=== PATIENT | female | born 1945 | race African-American/Black ===

== ENCOUNTER 2023-02-27 16:50 | Emergency (ER) | payer OTHER ==
[~2023-02-27] VITALS: Ht 162.6 cm; Wt 82.0 kg
[2023-02-27 16:56] VITALS: O2SAT 98
[2023-02-27 19:24] LABS: BASOPHILS % 0.5 % (0.0-2.0); EOSINOPHILS % 1.4 % (0.0-5.0); HEMATOCRIT. 35.5 % (36.0-48.0); HEMOGLOBIN. 11.3 g/dL (12.0-16.0); LYMPHOCYTES % 31.1 % (20.0-50.0); MEAN CORPUSCULAR HEMOGLOBIN 29.1 pg (28.0-32.0); MEAN CORPUSCULAR HGB CONC 31.9 g/dL (31.0-37.0); MEAN CORPUSCULAR VOLUME 91.2 fL (81.0-99.0); MEAN PLATELET VOLUME 7.3 fl (7.4-10.4); MONOCYTES % 10.5 % (2.0-8.0); NEUTROPHILS % 56.5 % (40.0-76.0); PLATELET 267 x1000/uL (130-400); RED BLOOD CELL COUNT 3.89 mill/uL (4.2-5.4); WHITE BLOOD COUNT 8.9 x1000/uL (4.5-11.0)
[2023-02-27 19:31] LABS: CHLORIDE 111 mEq/L (98-107); INDEX HEMOLYSI 2 (1-3); INDEX ICTERIC 1 (1-4); INDEX LIPEMIC 1 (1-3); POTASSIUM 4.8 mEq/L (3.5-5.1); SODIUM 138 mEq/L (136-145)
[2023-02-27 19:39] LABS: ALANINE AMINOTRANSFERASE 32 IU/L (13-61); ALBUMIN 3.8 g/dL (3.4-5.0); ASPARTATE AMINOTRANSFERASE 36 IU/L (15-37); BILIRUBIN TOTAL 0.2 mg/dL (0.1-1.0); CALCIUM 8.6 mg/dL (8.5-10.1); CARBON DIOXIDE 21 mEq/L (21-32); CREATININE 2.7 mg/dL (0.6-1.3); GLUCOSE 121 mg/dL (70-105); NT PRO B-TYPE NATRIURETIC PEP 252 pg/mL (5-125); PROTEIN TOTAL 7.6 g/dL (6.0-8.3); TROPONIN I HIGH SENSITIVITY 41 ng/L (<54); UREA NITROGEN BLOOD 39 mg/dL (7-21)
[2023-02-28 00:30] LABS: TROPONIN I HIGH SENSITIVITY 40 ng/L (<54)
[2023-02-28 02:13] VITALS: BP 141/90; PULSE 87; RESP 16; TEMP 97.6
== END 2023-02-28 02:23 | disposition short-term general hospital (02) ==
LOC: ER 16:50
DX: R07.89 Other chest pain (principal); I10 Essential (primary) hypertension; E78.00 Pure hypercholesterolemia, unspecified; E11.9 Type 2 diabetes mellitus without complications; Z91.018 Allergy to other foods; Z91.010 Allergy to peanuts; Z86.73 Personal history of transient ischemic attack (TIA), and cerebral infarction without residual deficits; Z68.31 Body mass index [BMI] 31.0-31.9, adult
CPT/HCPCS: 36415; 71045; 80053; 83880; 84484; 85025; 93005; 99285

== ENCOUNTER 2025-01-26 19:41 | Emergency (ER) | payer OTHER ==
[~2025-01-26] VITALS: Ht 167.6 cm; Wt 50.0 kg
[~2025-01-26 19:41] MED LIST: ASPI-986 MT; ATOR20TA MT; CHOL400D7 PO; DILT30TA37 MT; HYDR25TA78 MT; IBUP-2778 PO; TOPUD PO; VITA-384 MT
[2025-01-26 19:47] VITALS: TEMP 36.5; O2SAT 96
[2025-01-26] MEDS: HYDROCODONE/ACETAMINOPHEN 5/325MG TABLET PO ONE (21:35)
[2025-01-26] MEDS: LIDOCAINE 5% PATCH TOP SCH (21:36)
[2025-01-26] MEDS ORDERED: IBUP-2030 MT (21:46)
[2025-01-26] MEDS ORDERED: LIDO-53 TP (21:46)
[2025-01-26 22:17] VITALS: BP 166/66; PULSE 85; RESP 15; O2SAT 100
== END 2025-01-26 22:30 | disposition home or self-care (01) ==
LOC: ER 19:41
DX: E07.89 Other specified disorders of thyroid (principal); M54.50 Low back pain, unspecified; E11.9 Type 2 diabetes mellitus without complications; E78.00 Pure hypercholesterolemia, unspecified; I11.0 Hypertensive heart disease with heart failure; I50.9 Heart failure, unspecified; Z55.6 Problems related to health literacy; Z79.01 Long term (current) use of anticoagulants; Z79.82 Long term (current) use of aspirin; Z79.899 Other long term (current) drug therapy; Z86.73 Personal history of transient ischemic attack (TIA), and cerebral infarction without residual deficits; Z99.2 Dependence on renal dialysis; W01.0XXA Fall on same level from slipping, tripping and stumbling without subsequent striking against object, initial encounter; Y93.89 Activity, other specified; Y92.89 Other specified places as the place of occurrence of the external cause; Y99.8 Other external cause status
CPT/HCPCS: 71045; 72131; 72170; 99284

== ENCOUNTER 2025-02-03 16:11 | Emergency (ER) | payer OTHER ==
[~2025-02-03] VITALS: Ht 160 cm; Wt 54.0 kg
[~2025-02-03 16:11] MED LIST changes: +CALC667C PO; +FURO-152 MT; -IBUP-2778 PO; +LIDO-53 TP
[2025-02-03 16:13] VITALS: O2SAT 100
[2025-02-03 17:47] LABS: HEMATOCRIT. 31.1 % (36.0-48.0); HEMOGLOBIN. 10.0 g/dL (12.0-16.0); MEAN PLATELET VOLUME 7.1 fl (7.4-10.4); PLATELET 255 x1000/uL (130-400); RED BLOOD CELL COUNT 3.22 mill/uL (4.2-5.4); RED CELL DISTRIBUTION WIDTH 17.5 % (11.6-14.6)
[2025-02-03 17:58] LABS: CREATININE 4.5 mg/dL (0.6-1.0); UREA NITROGEN BLOOD 43 mg/dL (9-23)
[2025-02-03 18:03] LABS: EOSINOPHILS % MANUAL 10.0 % (0.0-5.0); LYMPHOCYTES % MANUAL 35.0 % (20.0-60.0); MONOCYTES % MANUAL 14.0 % (2.0-8.0); NEUTROPHILS % MANUAL 41.0 % (45.0-75.0); PLATELET ESTIMATE NORMAL
[2025-02-03 18:11] LABS: TROPONIN I HIGH SENSITIVITY 54 ng/L (3.0-34)
[2025-02-03] MEDS: ONDANSETRON HCL 4MG/2ML INJ IV ONE (18:30)
[2025-02-03] MEDS: ASPIRIN 81MG TABLET PO ONE (18:30)
[2025-02-03] MEDS: MORPHINE SULFATE 2 MG/ML INJ (NOT FOR IM USE) IV ONE (18:30)
[2025-02-03 20:48] LABS: TROPONIN I HIGH SENSITIVITY 40 ng/L (3.0-34)
[2025-02-03 22:36] VITALS: BP 186/59; PULSE 85; RESP 17; TEMP 37.1; O2SAT 99
== END 2025-02-03 23:25 | disposition short-term general hospital (02) ==
LOC: ER 16:11
DX: I13.2 Hypertensive heart and chronic kidney disease with heart failure and with stage 5 chronic kidney disease, or end stage renal disease (principal); R07.89 Other chest pain; R79.89 Other specified abnormal findings of blood chemistry; I50.9 Heart failure, unspecified; N18.6 End stage renal disease; J44.9 Chronic obstructive pulmonary disease, unspecified; Z79.82 Long term (current) use of aspirin; Z79.899 Other long term (current) drug therapy; Z99.2 Dependence on renal dialysis; Z91.010 Allergy to peanuts; Z91.018 Allergy to other foods
CPT/HCPCS: 36415; 71045; 80048; 83880; 84484; 85025; 93005; 99285

== ENCOUNTER 2025-02-20 15:07 | Inpatient (IN) | payer OTHER ==
[~2025-02-20] VITALS: Ht 170.2 cm; Wt 71.2 kg
[2025-02-20] MEDS: ONDANSETRON HCL 4MG/2ML INJ IV ONE (16:32)
[2025-02-20 16:39] LABS: HEMATOCRIT. 30.8 % (36.0-48.0); HEMOGLOBIN. 9.7 g/dL (12.0-16.0); MEAN PLATELET VOLUME 6.5 fl (7.4-10.4); PLATELET 253 x1000/uL (130-400); RED BLOOD CELL COUNT 3.05 mill/uL (4.2-5.4); RED CELL DISTRIBUTION WIDTH 20.2 % (11.6-14.6)
[2025-02-20 16:53] LABS: UREA NITROGEN BLOOD 75.0 mg/dL (9-23)
[2025-02-20 16:58] LABS: CREATININE 5.7 mg/dL (0.6-1.0)
[2025-02-20 17:24] LABS: EOSINOPHILS % MANUAL 8.0 % (0.0-5.0); LYMPHOCYTES % MANUAL 24.0 % (20.0-60.0); MONOCYTES % MANUAL 13.0 % (2.0-8.0); NEUTROPHILS % MANUAL 55.0 % (45.0-75.0); PLATELET ESTIMATE NORMAL
[2025-02-20] MEDS: DEXTROSE 50% WATER 50ML SYRINGE IV SCH (19:48)
[2025-02-20] MEDS: SODIUM BICARBONATE 8.4% 50MEQ/50ML SYR IV SCH (19:48)
[2025-02-20] MEDS: SODIUM POLYSTYRENE SULFONATE 15 G/60 ML BOT PO SCH (19:49)
[2025-02-20] MEDS: CALCIUM CHLORIDE 1GM/10ML SYR IV SCH (19:49)
[2025-02-20] MEDS: INSULIN REGULAR (HUMULIN R) 1000UNITS/10ML VIAL IV SCH (19:50)
[2025-02-20] MEDS: CLONIDINE 0.1MG TABLET PO SCH (20:09)
[2025-02-20] MEDS ORDERED: ONDANSETRON HCL 4MG/2ML INJ IV PRN (20:30)
[2025-02-20] MEDS ORDERED: MAGNESIUM/ALUMINUM HYDROXIDE/SIMETHICONE 30ML UDC PO PRN (20:30)
[2025-02-20] MEDS ORDERED: ACETAMINOPHEN 325MG TABLET PO PRN (20:30)
[2025-02-20] MEDS ORDERED: HYDROCODONE/ACETAMINOPHEN 5/325MG TABLET PO PRN (20:41)
[2025-02-20 23:00] VITALS: BP 158/72; PULSE 93; RESP 22; TEMP 37.0852
[2025-02-20] MEDS: HYDRALAZINE 20MG/ML VIAL IV PRN (23:21)
[2025-02-20] MEDS: ZOLPIDEM TARTRATE 5MG TABLET PO PRN (23:24)
[2025-02-21] VITALS (15 sets, daily range): BP systolic 145–182; BP diastolic 58–91; PULSE 80–95; RESP 14–20; TEMP 36.4–37.1; O2SAT 94–100
[2025-02-21] MEDS ORDERED: PANT40TA51 PO (02:43)
[2025-02-21] MEDS ORDERED: BENZ100C86 PO (02:43)
[2025-02-21] MEDS ORDERED: CARV3.1242 PO (02:43)
[2025-02-21] MEDS ORDERED: SUCR1TAB PO (02:43)
[2025-02-21] MEDS ORDERED: LACT-390 PO (02:43)
[2025-02-21 07:18] LABS: BASOPHILS % 3.6 % (0.0-2.0); EOSINOPHILS % 3.9 % (0.0-5.0); HEMATOCRIT. 30.6 % (36.0-48.0); HEMOGLOBIN. 9.6 g/dL (12.0-16.0); LYMPHOCYTES % 16.8 % (20.0-50.0); MEAN PLATELET VOLUME 6.8 fl (7.4-10.4); MONOCYTES % 13.1 % (2.0-8.0); NEUTROPHILS % 62.6 % (40.0-76.0); PLATELET 234 x1000/uL (130-400); RED BLOOD CELL COUNT 3.05 mill/uL (4.2-5.4); RED CELL DISTRIBUTION WIDTH 19.7 % (11.6-14.6)
[2025-02-21 08:06] LABS: UREA NITROGEN BLOOD 78.0 mg/dL (9-23)
[2025-02-21 08:20] LABS: CREATININE 5.8 mg/dL (0.6-1.0)
[2025-02-21] MEDS: ENOXAPARIN 30MG/0.3ML SYR SUBCUT SCH (10:19)
[2025-02-21] MEDS: PANTOPRAZOLE SODIUM 40 MG/VIAL IV SCH (10:19)
[2025-02-21] MEDS: CLONIDINE 0.1MG TABLET PO PRN (10:20)
[2025-02-21] MEDS ORDERED: DEXTROSE 50% WATER 50ML SYRINGE IV PRN (11:45)
[2025-02-21] MEDS: BLOOD SUGAR DIAGNOSTIC STRIP TEST SCH (12:57)
[2025-02-21] MEDS: INSULIN LISPRO 100 UNITS/ML SUBCUT SCH (13:10)
[2025-02-21] MEDS: CARVEDILOL 3.125 MG TABLET PO SCH (21:12)
[2025-02-21] MEDS: EPOETIN ALFA-EPBX 4,000 UNIT/ML VIAL SUBCUT SCH (21:48)
[2025-02-22] VITALS: BP 152/62; PULSE 90; RESP 20; TEMP 36.8; O2SAT 98
[2025-02-22 04:00] VITALS: BP 161/55; PULSE 87; RESP 20; TEMP 36.9; O2SAT 100
[2025-02-22 05:56] LABS: CREATININE 4.6 mg/dL (0.6-1.0); UREA NITROGEN BLOOD 57.0 mg/dL (9-23)
[2025-02-22 06:58] LABS: HEMATOCRIT. 26.6 % (36.0-48.0); HEMOGLOBIN. 8.5 g/dL (12.0-16.0); MEAN PLATELET VOLUME 6.7 fl (7.4-10.4); PLATELET 208 x1000/uL (130-400); RED BLOOD CELL COUNT 2.70 mill/uL (4.2-5.4); RED CELL DISTRIBUTION WIDTH 18.8 % (11.6-14.6)
[2025-02-22 08:00] VITALS: BP 162/63; RESP 20; TEMP 36.7; O2SAT 100
[2025-02-22] MEDS: CALCIUM ACETATE 667MG CAPSULE PO SCH (08:10)
[2025-02-22] MEDS: HYDRALAZINE HCL 25MG TABLET PO SCH (09:00)
[2025-02-22] MEDS: SUCRALFATE 1G TABLET PO SCH (09:00)
[2025-02-22] MEDS: ASPIRIN 325MG TABLET PO SCH (09:25)
[2025-02-22] MEDS: FUROSEMIDE 20MG TABLET PO SCH (09:25)
[2025-02-22] MEDS: ATORVASTATIN CALCIUM 20MG TABLET PO SCH (09:25)
[2025-02-22] MEDS: DILTIAZEM HCL 120MG CAPSULE ER 24HR PO SCH (09:28)
[2025-02-22 12:00] VITALS: BP 151/60; PULSE 83; RESP 16; TEMP 37.1; O2SAT 100
[2025-02-22 16:00] VITALS: BP 146/51; PULSE 71; RESP 17; TEMP 36.7; O2SAT 100
[2025-02-22 18:04] VITALS: BP 151/60; PULSE 83; TEMP 98.8; O2SAT 100
[2025-02-22 21:44] LABS: EOSINOPHILS % MANUAL 6.0 % (0.0-5.0); LYMPHOCYTES % MANUAL 15.0 % (20.0-60.0); MONOCYTES % MANUAL 14.0 % (2.0-8.0); NEUTROPHILS % MANUAL 65.0 % (45.0-75.0); PLATELET ESTIMATE NORMAL
[2025-02-24] MEDS ORDERED: DILT240C91 MT (18:43)
== END 2025-02-22 18:45 | disposition home or self-care (01) | DRG 640 ==
LOC: ER 15:07 → 7WST 20:12 → EDBEDREQ 20:42 → EDBEDREQTM 20:42 → ENRESERV 22:07
PROVIDERS: ADMIT Internal Medicine; ATTEND Internal Medicine
PROC: 5A1D70Z Performance of Urinary Filtration, Intermittent, Less than 6 Hours Per Day (ICD-10-PCS; principal; 2025-02-21)
DX: E87.5 Hyperkalemia (principal); N18.6 End stage renal disease; I13.2 Hypertensive heart and chronic kidney disease with heart failure and with stage 5 chronic kidney disease, or end stage renal disease; K62.5 Hemorrhage of anus and rectum; E11.22 Type 2 diabetes mellitus with diabetic chronic kidney disease; I50.9 Heart failure, unspecified; D64.9 Anemia, unspecified; E78.5 Hyperlipidemia, unspecified; J44.9 Chronic obstructive pulmonary disease, unspecified; Z86.73 Personal history of transient ischemic attack (TIA), and cerebral infarction without residual deficits; Z91.010 Allergy to peanuts; Z91.018 Allergy to other foods; Z91.158 Patient's noncompliance with renal dialysis for other reason; Z99.2 Dependence on renal dialysis
CPT/HCPCS: 36415; 71045; 80048; 82962; 83036; 85025; 90935; 93005; 93970; 97163; 99291; J0360; J0885; J1650; J1815; J2405; J2470; J3490

== ENCOUNTER 2025-02-25 19:58 | Inpatient (IN) | payer OTHER ==
[~2025-02-25] VITALS: Ht 162.6 cm; Wt 74.4 kg
[~2025-02-25 19:58] MED LIST changes: +BENZ100C86 PO; +CARV3.1242 PO; +DILT240C91 MT; -DILT30TA37 MT; +LACT-390 PO; +PANT40TA51 PO; +SUCR1TAB PO
[2025-02-25 20:08] VITALS: O2SAT 100
[2025-02-25 21:00] LABS: BASOPHILS % 0.9 % (0.0-2.0); EOSINOPHILS % 7.6 % (0.0-5.0); HEMATOCRIT. 30.7 % (36.0-48.0); HEMOGLOBIN. 9.9 g/dL (12.0-16.0); LYMPHOCYTES % 15.6 % (20.0-50.0); MEAN PLATELET VOLUME 6.8 fl (7.4-10.4); MONOCYTES % 14.7 % (2.0-8.0); NEUTROPHILS % 61.2 % (40.0-76.0); PLATELET 209 x1000/uL (130-400); RED BLOOD CELL COUNT 3.12 mill/uL (4.2-5.4); RED CELL DISTRIBUTION WIDTH 18.5 % (11.6-14.6)
[2025-02-25] MEDS: ONDANSETRON HCL 4MG/2ML INJ IV ONE (21:11)
[2025-02-25] MEDS: SODIUM CHLORIDE 0.9% 1,000 ML IV ONE (21:11)
[2025-02-25 21:15] LABS: UREA NITROGEN BLOOD 71 mg/dL (9-23)
[2025-02-25 21:17] LABS: ASPARTATE AMINOTRANSFERASE 34 IU/L (<34); BILIRUBIN DIRECT < 0.1 mg/dL (<=3.0); BILIRUBIN TOTAL 0.2 mg/dL (0.1-1.0); PROTEIN TOTAL 6.9 g/dL (6.0-8.3)
[2025-02-25 21:28] LABS: CREATININE 5.0 mg/dL (0.6-1.0)
[2025-02-26] VITALS (8 sets, daily range): BP systolic 146–172; BP diastolic 47–82; PULSE 71–85; RESP 18–20; TEMP 36.4–37.252; O2SAT 98–100
[2025-02-26] MEDS ORDERED: CEPHALEXIN 250MG CAPSULE PO ONE (01:00)
[2025-02-26 01:13] LABS: CLARITY URINE CLOUDY (CLEAR); COLOR URINE YELLOW (YELLOW); GLUCOSE URINE NEGATIVE (NEGATIVE); KETONES URINE TRACE (NEGATIVE); LEUKOCYTE ESTERASE URINE TRACE (NEGATIVE); NITRITE URINE NEGATIVE (NEGATIVE); OCCULT BLOOD URINE 1+ (NEGATIVE); PH URINE 6.0 (4.5-8.0); PROTEIN URINE 3+ (NEGATIVE); SPECIFIC GRAVITY URINE 1.018 (1.005-1.030); UROBILINOGEN URINE 1.0 E.U./dL (0.2-1.0)
[2025-02-26 01:26] LABS: SQUAMOUS EPITHELIAL CELL URINE 1+ /lpf (RARE/1+)
[2025-02-26 01:27] LABS: BACTERIA URINE 1+
[2025-02-26] MEDS: CEPHALEXIN 250MG CAPSULE PO SCH (02:52)
[2025-02-26] MEDS: HYDRALAZINE 20MG/ML VIAL IV SCH (03:02)
[2025-02-26] MEDS: DILTIAZEM HCL 60MG TABLET PO SCH (06:00)
[2025-02-26] MEDS: LIDOCAINE 5% PATCH TOP SCH (09:00)
[2025-02-26] MEDS: FUROSEMIDE 40MG/4ML VIAL IVP NR (10:33)
[2025-02-26] MEDS ORDERED: ONDANSETRON HCL 4MG/2ML INJ IV PRN (12:00)
[2025-02-26 12:37] LABS: UREA NITROGEN BLOOD 74.0 mg/dL (9-23)
[2025-02-26 12:39] LABS: CREATININE 5.0 mg/dL (0.6-1.0)
[2025-02-26 12:42] LABS: BASOPHILS % 0.6 % (0.0-2.0); EOSINOPHILS % 7.5 % (0.0-5.0); HEMATOCRIT. 29.8 % (36.0-48.0); HEMOGLOBIN. 9.5 g/dL (12.0-16.0); LYMPHOCYTES % 17.5 % (20.0-50.0); MEAN PLATELET VOLUME 7.5 fl (7.4-10.4); MONOCYTES % 13.9 % (2.0-8.0); NEUTROPHILS % 60.5 % (40.0-76.0); PLATELET 222 x1000/uL (130-400); RED BLOOD CELL COUNT 3.03 mill/uL (4.2-5.4); RED CELL DISTRIBUTION WIDTH 18.4 % (11.6-14.6)
[2025-02-26] MEDS: DOCUSATE SODIUM 250MG CAPSULE PO SCH (13:29)
[2025-02-27] VITALS (13 sets, daily range): BP systolic 145–205; BP diastolic 51–79; PULSE 62–97; RESP 17–20; TEMP 36.28068–36.6; O2SAT 98–100
[2025-02-27] MEDS: FOLIC ACID/VITAMIN B COMP W-C TABLET PO SCH (09:49)
[2025-02-27 11:14] LABS: BASOPHILS % 0.6 % (0.0-2.0); EOSINOPHILS % 7.0 % (0.0-5.0); HEMATOCRIT. 29.7 % (36.0-48.0); HEMOGLOBIN. 9.6 g/dL (12.0-16.0); LYMPHOCYTES % 15.4 % (20.0-50.0); MEAN PLATELET VOLUME 7.2 fl (7.4-10.4); MONOCYTES % 12.7 % (2.0-8.0); NEUTROPHILS % 64.3 % (40.0-76.0); PLATELET 202 x1000/uL (130-400); RED BLOOD CELL COUNT 3.03 mill/uL (4.2-5.4); RED CELL DISTRIBUTION WIDTH 18.4 % (11.6-14.6)
[2025-02-27 11:50] LABS: UREA NITROGEN BLOOD 82.0 mg/dL (9-23)
[2025-02-27 11:52] LABS: CREATININE 5.5 mg/dL (0.6-1.0); PHOSPHORUS 4.3 mg/dL (2.5-4.9)
[2025-02-27] MEDS: HYDRALAZINE HCL 25MG TABLET PO NR (12:05)
[2025-02-27] MEDS: SODIUM POLYSTYRENE SULFONATE 15 G/60 ML BOT PO NR (12:06)
[2025-02-27] MEDS: HYDRALAZINE HCL 25MG TABLET PO SCH (15:05)
[2025-02-27] MEDS: FUROSEMIDE 100MG/10ML VIAL IVP SCH (15:05)
[2025-02-27] MEDS: HYDRALAZINE HCL 50MG TABLET PO SCH (17:19)
[2025-02-27 20:22] LABS: HEPATITIS A AB IGM NEGATIVE (Negative)
[2025-02-27 20:24] LABS: HEPATITIS B CORE AB IGM NEGATIVE (Negative)
[2025-02-27 20:25] LABS: HEPATITIS C AB NON REACTIVE (Neg) (Negative)
[2025-02-27] MEDS ORDERED: LIDOCAINE HCL 2% 5ML SYRINGE IV ONE (20:30)
[2025-02-27] MEDS ORDERED: LIDOCAINE HCL/PF 2% 20MG/ML 5 ML/VIAL INJ SCH (20:45)
[2025-02-27] MEDS: CARVEDILOL 6.25 MG TABLET PO SCH (21:00)
[2025-02-27] MEDS: HYDRALAZINE HCL 100MG TABLET PO SCH (22:00)
[2025-02-27] MEDS: LIDOCAINE HCL 1% 20ML VIAL INFIL SCH (22:43)
[2025-02-28] VITALS (9 sets, daily range): BP systolic 114–185; BP diastolic 49–71; PULSE 65–97; RESP 16–20; TEMP 36.1–36.8; O2SAT 94–100
[2025-02-28] MEDS ORDERED: NALOXONE HCL 0.4MG/ML VIAL IV PRN (01:30)
[2025-02-28] MEDS: HYDROCODONE/ACETAMINOPHEN 5/325MG TABLET PO PRN (01:32)
[2025-02-28 07:19] LABS: CREATININE 4.1 mg/dL (0.6-1.0); UREA NITROGEN BLOOD 48.0 mg/dL (9-23)
[2025-02-28] MEDS: LOSARTAN 50 MG TABLET PO SCH (14:12)
[2025-02-28] MEDS: EPOETIN ALFA-EPBX 4,000 UNITS/ML VIAL SUBCUT SCH (21:20)
[2025-03-01] VITALS (7 sets, daily range): BP systolic 129–163; BP diastolic 38–52; PULSE 66–89; RESP 16–20; TEMP 36.3–37.3; O2SAT 94–100
[2025-03-01 07:54] LABS: HEMATOCRIT. 26.6 % (36.0-48.0); HEMOGLOBIN. 8.7 g/dL (12.0-16.0); MEAN PLATELET VOLUME 7.3 fl (7.4-10.4); PLATELET 204 x1000/uL (130-400); RED BLOOD CELL COUNT 2.74 mill/uL (4.2-5.4); RED CELL DISTRIBUTION WIDTH 17.7 % (11.6-14.6)
[2025-03-01 07:56] LABS: UREA NITROGEN BLOOD 58 mg/dL (9-23)
[2025-03-01 07:58] LABS: CREATININE 4.5 mg/dL (0.6-1.0)
[2025-03-01 07:59] LABS: ASPARTATE AMINOTRANSFERASE 22 IU/L (<34)
[2025-03-01 08:01] LABS: BILIRUBIN DIRECT 0.1 mg/dL (<=3.0); BILIRUBIN TOTAL 0.2 mg/dL (0.1-1.0); PHOSPHORUS 4.7 mg/dL (2.5-4.9); PROTEIN TOTAL 5.7 g/dL (6.0-8.3)
[2025-03-01] MEDS ORDERED: HYDRALAZINE 20MG/ML VIAL IV PRN (11:00)
[2025-03-01 16:52] LABS: LYMPHOCYTES % MANUAL 24.0 % (20.0-60.0); MONOCYTES % MANUAL 11.0 % (2.0-8.0); NEUTROPHILS % MANUAL 65.0 % (45.0-75.0); PLATELET ESTIMATE NORMAL
[2025-03-02] VITALS (15 sets, daily range): BP systolic 128–177; BP diastolic 50–75; PULSE 71–90; RESP 16–20; TEMP 36.4–37.7; O2SAT 96–100
[2025-03-02] MEDS ORDERED: HYDRALAZINE 10 MG in SODIUM CHLORIDE 0.9% 49.5 ML IV PRN (05:15)
[2025-03-02] MEDS: LOSARTAN 100 MG TABLET PO SCH (08:27)
[2025-03-02] MEDS: FUROSEMIDE 40MG/4ML VIAL IVP SCH (11:09)
[2025-03-02] MEDS ORDERED: CLONIDINE 0.2MG TABLET PO NR (15:30)
[2025-03-02 17:04] LABS: BASOPHILS % 0.7 % (0.0-2.0); EOSINOPHILS % 8.4 % (0.0-5.0); HEMATOCRIT. 29.0 % (36.0-48.0); HEMOGLOBIN. 9.5 g/dL (12.0-16.0); LYMPHOCYTES % 17.7 % (20.0-50.0); MEAN PLATELET VOLUME 7.3 fl (7.4-10.4); MONOCYTES % 13.3 % (2.0-8.0); NEUTROPHILS % 59.9 % (40.0-76.0); PLATELET 217 x1000/uL (130-400); RED BLOOD CELL COUNT 3.01 mill/uL (4.2-5.4); RED CELL DISTRIBUTION WIDTH 17.4 % (11.6-14.6)
[2025-03-02 17:20] LABS: UREA NITROGEN BLOOD 42 mg/dL (9-23)
[2025-03-02 17:22] LABS: PHOSPHORUS 3.1 mg/dL (2.5-4.9)
[2025-03-02 17:38] LABS: CREATININE 3.1 mg/dL (0.6-1.0)
[2025-03-03] VITALS: BP 146/53; PULSE 84; RESP 18; TEMP 36.7; O2SAT 100
[2025-03-03 04:00] VITALS: BP 153/71; PULSE 81; RESP 18; TEMP 36.8; O2SAT 100
[2025-03-03 08:00] VITALS: BP 154/64; PULSE 83; RESP 18; TEMP 36.9; O2SAT 97
[2025-03-03 12:00] VITALS: BP 148/68; PULSE 66; RESP 17; TEMP 36.7; O2SAT 100
[2025-03-03 16:00] VITALS: BP 131/72; PULSE 61; RESP 17; TEMP 36.4; O2SAT 99
[2025-03-03 16:36] VITALS: BP 128/67; PULSE 81; RESP 17; TEMP 98.4
== END 2025-03-03 18:37 | disposition home health service (06) | DRG 444 ==
LOC: ER 19:58 → 5WST 02-26 02:07 → EDBEDREQ 02-26 02:14 → EDBEDREQTM 02-26 02:14 → ENRESERV 02-26 02:34 → 7EST 03-02 04:50
PROVIDERS: ADMIT Internal Medicine; ATTEND Internal Medicine
PROC: 5A1D70Z Performance of Urinary Filtration, Intermittent, Less than 6 Hours Per Day (ICD-10-PCS; principal; 2025-02-26)
PROC: 5A1D70Z Performance of Urinary Filtration, Intermittent, Less than 6 Hours Per Day (ICD-10-PCS; 2025-02-27)
PROC: 5A1D70Z Performance of Urinary Filtration, Intermittent, Less than 6 Hours Per Day (ICD-10-PCS; 2025-03-02)
DX: K80.10 Calculus of gallbladder with chronic cholecystitis without obstruction (principal); N18.6 End stage renal disease; I13.2 Hypertensive heart and chronic kidney disease with heart failure and with stage 5 chronic kidney disease, or end stage renal disease; N25.81 Secondary hyperparathyroidism of renal origin; K59.00 Constipation, unspecified; Z99.2 Dependence on renal dialysis; D64.9 Anemia, unspecified; E87.5 Hyperkalemia; E78.5 Hyperlipidemia, unspecified; F31.9 Bipolar disorder, unspecified; I50.9 Heart failure, unspecified; J44.9 Chronic obstructive pulmonary disease, unspecified; K82.8 Other specified diseases of gallbladder; F41.9 Anxiety disorder, unspecified; G89.29 Other chronic pain; A05.9 Bacterial foodborne intoxication, unspecified; K21.9 Gastro-esophageal reflux disease without esophagitis; Z79.82 Long term (current) use of aspirin; Z79.899 Other long term (current) drug therapy; Z80.0 Family history of malignant neoplasm of digestive organs; Z82.49 Family history of ischemic heart disease and other diseases of the circulatory system; Z86.73 Personal history of transient ischemic attack (TIA), and cerebral infarction without residual deficits; Z91.010 Allergy to peanuts
CPT/HCPCS: 36415; 71045; 74176; 76700; 78227; 80048; 80076; 81003; 83735; 84100; 85025; 86705; 86709; 87340; 90935; 96361; 96374; 97162; 99285; A4606; A9537; J0360; J0885; J1938; J2003; J2405; J3490; J7030

== ENCOUNTER 2025-03-20 23:30 | Inpatient (IN) | payer OTHER ==
[~2025-03-20] VITALS: Ht 152.4 cm; Wt 68.0 kg
[2025-03-20 23:50] VITALS: O2SAT 98
[2025-03-21] VITALS (13 sets, daily range): BP systolic 120–164; BP diastolic 47–61; PULSE 65–82; RESP 18–20; TEMP 36.2–37.1; O2SAT 97–99
[2025-03-21 01:27] LABS: HEMATOCRIT. 35.4 % (36.0-48.0); HEMOGLOBIN. 11.3 g/dL (12.0-16.0); MEAN PLATELET VOLUME 6.8 fl (7.4-10.4); PLATELET 233 x1000/uL (130-400); RED BLOOD CELL COUNT 3.61 mill/uL (4.2-5.4); RED CELL DISTRIBUTION WIDTH 17.5 % (11.6-14.6)
[2025-03-21 01:40] LABS: CREATININE 4.1 mg/dL (0.6-1.0)
[2025-03-21 01:41] LABS: ETHANOL BLOOD < 10 mg/dL (<10); UREA NITROGEN BLOOD 30 mg/dL (9-23)
[2025-03-21 01:42] LABS: ASPARTATE AMINOTRANSFERASE 33 IU/L (<34)
[2025-03-21 01:43] LABS: BILIRUBIN DIRECT 0.1 mg/dL (<=3.0); BILIRUBIN TOTAL 0.2 mg/dL (0.1-1.0); PROTEIN TOTAL 6.9 g/dL (6.0-8.3)
[2025-03-21 01:45] LABS: TROPONIN I HIGH SENSITIVITY 40 ng/L (3.0-34)
[2025-03-21 02:11] LABS: INR 1.0
[2025-03-21 04:29] LABS: TROPONIN I HIGH SENSITIVITY 39 ng/L (3.0-34)
[2025-03-21] MEDS: MORPHINE SULFATE 2 MG/ML INJ (NOT FOR IM USE) IV ONE (04:44)
[2025-03-21] MEDS: HYDRALAZINE 20MG/ML VIAL IV ONE (04:44)
[2025-03-21 05:06] LABS: ATYPICAL LYMPHOCYTES 1; EOSINOPHILS % MANUAL 4.0 % (0.0-5.0); LYMPHOCYTES % MANUAL 25.0 % (20.0-60.0); MONOCYTES % MANUAL 13.0 % (2.0-8.0); NEUTROPHILS % MANUAL 57.0 % (45.0-75.0); PLATELET ESTIMATE NORMAL
[2025-03-21] MEDS: DIPHENHYDRAMINE 25MG CAPSULE PO ONE (05:28)
[2025-03-21] MEDS ORDERED: ACETAMINOPHEN 650MG/20.3ML UDC PO PRN (08:00)
[2025-03-21] MEDS: PANTOPRAZOLE SODIUM 40 MG/VIAL IV SCH (09:19)
[2025-03-21] MEDS: CARVEDILOL 3.125 MG TABLET PO SCH (09:20)
[2025-03-21] MEDS: FOLIC ACID/VITAMIN B COMP W-C TABLET PO SCH (09:20)
[2025-03-21] MEDS: ASPIRIN 81MG TABLET PO SCH (09:21)
[2025-03-21] MEDS: HYDRALAZINE HCL 50MG TABLET PO SCH (09:21)
[2025-03-21] MEDS: DILTIAZEM HCL 120MG CAPSULE ER 24HR PO NR (17:48)
[2025-03-21] MEDS: ATORVASTATIN CALCIUM 20MG TABLET PO SCH (20:22)
== END 2025-03-21 20:45 | disposition short-term general hospital (02) | DRG 73 ==
LOC: ER 23:30 → 8WST 03-21 03:48 → EDBEDREQ 03-21 05:22 → ENRESERV 03-21 05:51
PROVIDERS: ADMIT Internal Medicine; ATTEND Internal Medicine
PROC: 5A1D70Z Performance of Urinary Filtration, Intermittent, Less than 6 Hours Per Day (ICD-10-PCS; principal; 2025-03-21)
DX: G90.89 Other disorders of autonomic nervous system (principal); N18.6 End stage renal disease; I13.2 Hypertensive heart and chronic kidney disease with heart failure and with stage 5 chronic kidney disease, or end stage renal disease; N25.81 Secondary hyperparathyroidism of renal origin; D64.9 Anemia, unspecified; E11.22 Type 2 diabetes mellitus with diabetic chronic kidney disease; E78.5 Hyperlipidemia, unspecified; I50.9 Heart failure, unspecified; J44.9 Chronic obstructive pulmonary disease, unspecified; Z86.73 Personal history of transient ischemic attack (TIA), and cerebral infarction without residual deficits; Z91.010 Allergy to peanuts; Z99.2 Dependence on renal dialysis; Z88.8 Allergy status to other drugs, medicaments and biological substances; Z82.49 Family history of ischemic heart disease and other diseases of the circulatory system; Z79.899 Other long term (current) drug therapy
CPT/HCPCS: 36415; 71045; 71250; 72170; 80048; 80076; 80320; 83880; 84484; 85025; 90935; 93005; A4606; J0360; J2270; J2470; Q0163; G0480